=== PATIENT | female | born 1935 | race Caucasian/White ===

== ENCOUNTER 2020-07-07 15:17 | Inpatient (IN) | payer MEDICARE, MEDICAID, SELFPAY ==
[2020-07-07] VITALS (12 sets, daily range): BP systolic 125–183; BP diastolic 48–102; PULSE 84–102; RESP 16–22; TEMP 36.4; O2SAT 90–100; BMI 44.5
--- NOTE | 2020-07-07 15:49 | W.ED.RECABL ---
HPI - Recheck/Abnormal Lab/Rx General: Chief Complaint: Recheck/Abnormal Lab/Rx Stated Complaint: DM RECENT MED CHANGE Time Seen by Provider: 07/07/20 15:26 History of Present Illness: HPI narrative: 84 old female presents to the emergency room via EMS with hypoglycemia. She was recently started on glimepiride she took it for 2 days did not take any today she has been having problems with low blood sugar since he started in the field her blood sugar was below 50 EMS reported in the 30s. She was treated on arrival here she is awake and alert. Bedside glucose is 105. Denies any other symptoms no cough short of breath no vomiting or diarrhea, she has had some nausea with the blood sugars being so low. MD complaint: abnormal lab Initial visit (ago): day(s) Description of abnormal result: Persistent low blood sugar Review of Systems Const: Denies: fever(s), chills, body aches, change in appetite, fatigue or malaise ENMT: Denies: throat pain, ear or mastoid pain, nasal discharge or nasal congestion Card: Denies: chest pain, edema, dyspnea on exertion or orthopnea Resp: Denies: dyspnea, productive cough or non-productive cough GI: Denies: abdominal pain, nausea, vomiting, hematemesis, coffee ground emesis, diarrhea, constipation, bloating, hematochezia or melena : Denies: flank pain, difficulty voiding, dysuria, urinary frequency or urinary urgency Skin/Breast: Denies: rash or pruritus PFSH ED PFSH: Medical History (Updated 07/12/20 @ 14:57 by Sotero Gayle DO) Anemia, chronic renal failure Atrial fibrillation Chronic kidney disease Diabetes mellitus, type II History of transient ischemic attack (TIA) Hyperlipidemia Hypertension Sleep apnea PFTs in 2014 revealed mild with apnea-hypopnea index of 11.5 Surgical History (Updated 07/08/20 @ 02:13 by Monica Vuong MD) History of inguinal hernia repair Family History (Updated 07/08/20 @ 09:31 by Monica Vuong MD) Other Diabetes Social History (Updated 07/08/20 @ 02:21 by Monica Vuong MD) Smoking and tobacco status: never smoked Alcohol intake: never Substance/Drug Use: never Marital status: / Physical Exam Const: COMMON NORMALS: no acute distress GENERAL APPEARANCE: cooperative and comfortable HENMT: COMMON NORMALS: normocephalic, atraumatic and hearing grossly normal bilaterally HEAD & SCALP: normocephalic and atraumatic Eye: COMMON NORMALS: Equal, round and reactive pupils present, EOMs intact bilaterally, conjunctivae normal and no scleral icterus CONJUNCTIVA: Yes conjunctivae normal PUPIL: Yes Equal, round and reactive pupils present Neck/C-Spine: COMMON NORMALS: full ROM, no lymphadenopathy, supple and no JVD Lymph: LYMPHATIC: no lymphadenopathy noted and no lymphedema noted Resp: COMMON NORMALS: normal respiratory effort, No retractions, No use of accessory muscles and clear to auscultation bilaterally AUSCULTATION: clear to auscultation bilaterally Cardio: COMMON NORMALS: no JVD, regular rate, regular rhythm and No murmurs present (Cardio) RATE: regular rate RHYTHM: regular rhythm GI: COMMON NORMALS: Soft to palpation and No hepatosplenomegaly present AUSCULTATION: Yes normoactive bowel sounds PALPATION: Yes Soft to palpation, No Tenderness to palpation present (GI), No Guarding due to palpation present (GI) and Yes No hepatosplenomegaly present Extremity: COMMON NORMALS: normal to inspection, capillary refill normal, no clubbing, cyanosis or edema, no calf tenderness and no pedal edema Skin: COMMON NORMALS: no rashes or lesions noted GENERAL SKIN EXAM: no rashes or lesions noted Course Vital Signs: Vital signs: Vital Signs Temperature 98.3 F 07/08/20 17:09 Pulse Rate 89 07/08/20 17:09 Respiratory Rate 20 H 07/08/20 17:09 Blood Pressure 163/84 07/08/20 17:09 Pulse Oximetry 98 07/08/20 17:09 MDM - Recheck/Abnormal Lab/Rx MDM Narrative: Medical decision making narrative: Patient was given was given 70 eat and as well as glucose boluses and drip were unable to keep her sugar up above 80 consistently and she continued to drop down into the 60s and lower and be symptomatic ultimately decided to observe her overnight we will hold the glimepiride monitor Accu-Cheks discussed with Dr. Steen Lab Data: Labs: Lab Results 07/07/20 07/07/20 07/07/20 Range/Units 15:13 15:13 15:13 WBC 5.0 (4.0-10.0) 10^3/ uL RBC 3.42 L (4.1-5.3) 10^6/u L Hgb 10.2 L (11.5-15.3) g/dL Hct 34.5 L (37.0-47.0) % MCV 100.9 H (81-99) fL MCH 29.8 (28.0-34.0) pg MCHC 29.6 L (30.0-36.0) g/dL RDW 15.9 H (12.1-15.1) % Plt Count 150 (130-400) 10^3/c mm MPV 11.4 H (7.4-10.4) fL Neut % (Auto) 65.0 % Lymph % (Auto) 21.1 % [place] % (Auto) 11.9 % Eos % (Auto) 1.6 % Baso % (Auto) 0.2 % Neut # (Auto) 3.23 (1.8-7.7) 10^3/u L Lymph # (Auto) 1.1 (0.8-4.8) 10^3/u L [place] # (Auto) 0.6 (0.2-0.9) 10^3/u L Eos # (Auto) 0.1 (0.0-0.8) 10^3/u L Baso # (Auto) 0.0 (0.0-0.1) 10^3/u L Nucleated RBC % (a uto) 0 % Nucleated RBCs # 0.0 /100WBC Sodium 139 (136-145) mmol/L Potassium 4.4 (3.5-5.1) mmol/L Chloride 105 (98-107) mmol/L Carbon Dioxide 21 L (22-29) mmol/L Anion Gap 17.4 (5-19) BUN 42 H (8-23) mg/dL Creatinine 1.9 H (0.5-0.9) mg/dL GFR Calculation Not Reportable Glucose 30 L* (65-115) mg/dL POC Glucose (70-110) mg/dL Calculated Osmolal ity 295 (285-295) mOsm/k g Calcium 9.8 (8.5-10.5) mg/dL GGT 15 (5-36) U/L AST 44 H (0-32) U/L ALT 13 (0-33) U/L Lactate Dehydrogen ase 320 H (135-214) U/L TSH 4.94 H (0.27-4.20) uIU/ mL 07/07/20 07/07/20 07/07/20 Range/Units 16:12 16:56 17:49 WBC (4.0-10.0) 10^3/ uL RBC (4.1-5.3) 10^6/u L Hgb (11.5-15.3) g/dL Hct (37.0-47.0) % MCV (81-99) fL MCH (28.0-34.0) pg MCHC (30.0-36.0) g/dL RDW (12.1-15.1) % Plt Count (130-400) 10^3/c mm MPV (7.4-10.4) fL Neut % (Auto) % Lymph % (Auto) % [place] % (Auto) % Eos % (Auto) % Baso % (Auto) % Neut # (Auto) (1.8-7.7) 10^3/u L Lymph # (Auto) (0.8-4.8) 10^3/u L [place] # (Auto) (0.2-0.9) 10^3/u L Eos # (Auto) (0.0-0.8) 10^3/u L Baso # (Auto) (0.0-0.1) 10^3/u L Nucleated RBC % (a uto) % Nucleated RBCs # /100WBC Sodium (136-145) mmol/L Potassium (3.5-5.1) mmol/L Chloride (98-107) mmol/L Carbon Dioxide (22-29) mmol/L Anion Gap (5-19) BUN (8-23) mg/dL Creatinine (0.5-0.9) mg/dL GFR Calculation Glucose (65-115) mg/dL POC Glucose 66 88 53 (70-110) mg/dL Calculated Osmolal ity (285-295) mOsm/k g Calcium (8.5-10.5) mg/dL GGT (5-36) U/L AST (0-32) U/L ALT (0-33) U/L Lactate Dehydrogen ase (135-214) U/L TSH (0.27-4.20) uIU/ mL Discharge Plan Discharge Patient Disposition: Placed in Observation Admit Provider: Moisés Steen Clinical Impression: Hypoglycemia, Chronic kidney disease, Hypertension, Diabetes mellitus, type II Condition: Stable Referrals: Yassine Trejo MD [Primary Care Provider] - 07/15/20 3:15 pm Discharge Diet: Diabetic Discharge Activity: Increase activity as tolerated Patient Instructions: Type 2 Diabetes, Hypoglycemia, Heart Failure (DC), CHF Stoplight Additional Instructions: Home oxygen evaluation prior to discharge. Interventions: ED Discharge Assessment Last Done: 07/07/20 21:07 ED Charges Last Done: 07/07/20 21:07 Discharge Date/Time: 07/07/20 21:00 Coding Level of Care Code ED Weed Sprayer for Chg Fwd Exam Comprehensive
[2020-07-07 16:02] LABS: Blood Urea Nitrogen 42 mg/dL (8-23); Calcium 9.8 mg/dL (8.5-10.5); Carbon Dioxide 21 mmol/L (22-29); Chloride 105 mmol/L (98-107); Osmolality Calculated 295 mOsm/kg (285-295); Sodium 139 mmol/L (136-145)
[2020-07-07 16:07] LABS: Glucose 30 mg/dL (65-115)
[2020-07-07 16:09] LABS: Anion Gap 17.4 (5-19); Potassium 4.4 mmol/L (3.5-5.1)
[2020-07-07 16:16] LABS: Glucose Point of Care 66 mg/dL (70-110)
[2020-07-07] MEDS: dextrose 50% syringe 50 mL 25 ML IVP ×2 (16:23→20:17)
--- NOTE | 2020-07-07 16:57 | PC.NURSE ---
PT BS was 88, MD notified.
[2020-07-07 16:59] LABS: Glucose Point of Care 88 mg/dL (70-110)
[2020-07-07 17:52] LABS: Glucose Point of Care 53 mg/dL (70-110)
[2020-07-07] MEDS: dextrose 5%-sod chloride 0.9% 1,000 ML 125 ML IV (18:25)
[2020-07-07 19:15] LABS: Basophils % 0.2 %; Eosinophils # 0.1 10^3/uL (0.0-0.8); Eosinophils % 1.6 %; Hematocrit 34.5 % (37.0-47.0); Hemoglobin 10.2 g/dL (11.5-15.3); Lymphocytes # 1.1 10^3/uL (0.8-4.8); Lymphocytes % 21.1 %; Mean Corpuscular HGB Conc 29.6 g/dL (30.0-36.0); Mean Corpuscular Hemoglobin 29.8 pg (28.0-34.0); Mean Corpuscular Volume 100.9 fL (81-99); Mean Platelet Volume 11.4 fL (7.4-10.4); Monocytes # 0.6 10^3/uL (0.2-0.9); Monocytes % 11.9 %; Neutrophils # 3.23 10^3/uL (1.8-7.7); Nucleated Red Blood Cells % 0 %; Platelet Count 150 10^3/cmm (130-400); Red Blood Count 3.42 10^6/uL (4.1-5.3); Red Cell Distribution Width 15.9 % (12.1-15.1)
[2020-07-07 19:20] LABS: Alanine Aminotransferase 13 U/L (0-33); Gamma Glutamyl Transferase 15 U/L (5-36); Thyroid Stimulating Hormone 4.94 uIU/mL (0.27-4.20)
[2020-07-07 19:31] LABS: Glucose Point of Care 44 mg/dL (70-110)
[2020-07-07 19:32] LABS: Aspartate Amino Transferase 44 U/L (0-32); Lactate Dehydrogenase 320 U/L (135-214)
--- NOTE | 2020-07-07 19:56 | PC.NURSE ---
pt Blood Glucose read 44 at approx 1930 this nurse gave patient 8 oz of juice checked BG 30 min after and BG 41
[2020-07-07 20:18] LABS: Glucose Point of Care 41 mg/dL (70-110)
[2020-07-07] MEDS: dextrose 10% 1,000 ML 75 ML IV (20:30)
[2020-07-07 20:50] LABS: Glucose Point of Care 68 mg/dL (70-110)
[2020-07-07 22:03] LABS: Glucose Point of Care 52 mg/dL (70-110)
[2020-07-07] MEDS: dextrose 10% 1,000 ML 125 ML IV (22:47)
--- NOTE | 2020-07-07 23:40 | PM.HP ---
Providers/Chief Complaint Admitting Physician: Moisés Steen MD Primary Care Provider: Yassine Trejo MD Chief Complaint: Low blood sugar History of Present Illness Viviana Aviles is a 84 year old female who presented to the emergency room with chief complaint of low blood sugar and not feeling well. She had been recently started on glimepiride for her diabetes. It was 2 mg daily. She started it on Tuesday, taking it on Tuesday and Tuesday. She did not take it today because of how low her blood sugars had been. She was more symptomatic today with tremors, general malaise, fatigue, diaphoresis and nausea among a sense of general unease. She was brought in by EMS who reported her blood sugar to be in the 30s. She has received D50 and has been started on D5W. Blood sugars are better though continue to be low necessitating increase up to 125 cc an hour of D5W thus far. She has never had anything like this before. She did stop her pioglitazone prior to starting the glimepiride. She does not take any insulin. She does have known chronic kidney disease but looking at most recently available comparative labs that date back to 2014 values are not that dissimilar. Do not currently have any more recent values for comparison. With the persistent hypoglycemia in the setting of sulfonylurea she is being admitted for further evaluation and treatment. She denies any episodes of chest pain or acute difficulty breathing. Review of Systems Const: Reports: change in appetite, fatigue, malaise and diaphoresis; Denies: fever(s) or chills Eyes: Denies: change in vision ENMT: Denies: throat pain, dry mouth or nasal congestion Card: Denies: chest pain, palpitations or edema Resp: Denies: dyspnea, productive cough or non-productive cough GI: Reports: nausea; Denies: abdominal pain, vomiting, diarrhea or constipation : Reports: other (States she is unable to urinate if she does not take Lasix) Musc: Reports: other (Generalized aches and pains) Skin/Breast: Denies: rash, pruritus or sores Neuro: Reports: weakness in extremities and dizziness; Denies: headache(s) or numbness in extremities Psych: Reports: anxiety; Denies: depression Jamie/Lymph: Denies: easy bruising or easy bleeding Medications/Allergies Home Medications Medication Instructions Recorded Confirmed Last Taken Type alprazolam 0.25 mg PO TID PRN 07/07/20 07/07/20 Unknown History atorvastatin 10 mg PO DAILY 07/07/20 07/07/20 07/07/20 History dabigatran etexilate [Pradaxa] 75 mg PO DAILY 07/07/20 07/07/20 07/07/20 History ergocalciferol (vitamin D2) 1,250 mcg PO Q7D 07/07/20 07/07/20 07/05/20 History furosemide 40 mg PO DAILY 07/07/20 07/07/20 07/06/20 History glimepiride 2 mg PO DAILY 07/07/20 07/07/20 07/06/20 History pantoprazole 40 mg PO DAILY 07/07/20 07/07/20 07/07/20 History pioglitazone 30 mg PO DAILY 07/07/20 07/07/20 07/04/20 History tramadol-acetaminophen 1 - 2 tab PO TID PRN 07/07/20 07/07/20 Unknown History Allergies Allergy/AdvReac Type Severity Reaction Status Date / Time cephalexin [From Keflex] Allergy ADR-Nausea Verified 07/07/20 15:29 Sulfa (Sulfonamide Allergy ADR-Vomitin Verified 07/07/20 15:29 Antibiotics) g PFSH Acute PFSH: Medical History (Updated 07/08/20 @ 02:24 by Monica Vuong MD) Anemia, chronic renal failure Atrial fibrillation Chronic kidney disease Diabetes mellitus, type II History of transient ischemic attack (TIA) Hyperlipidemia Hypertension Sleep apnea PFTs in 2014 revealed mild with apnea-hypopnea index of 11.5 Surgical History (Updated 07/08/20 @ 02:13 by Monica Vuong MD) History of inguinal hernia repair Family History (Updated 07/08/20 @ 09:31 by Monica Vuong MD) Other Diabetes Social History (Updated 07/08/20 @ 02:21 by Monica Vuong MD) Smoking and tobacco status: never smoked Alcohol intake: never Substance/Drug Use: never Marital status: / Vitals/I&O/Wt Last Vital Signs Temp 97.6 F 07/07/20 21:30 Pulse 92 07/07/20 21:30 Resp 20 H 07/07/20 21:30 BP 137/65 07/07/20 21:30 Pulse Ox 100 07/07/20 21:30 07/07/20 07/07/20 07/08/20 14:59 22:59 06:59 Intake Total 279.167 / 279.167 Output Total 100 / 100 Balance 179.167 / 179.167 Weight last 48 hrs Weight 103.419 kg Physical Exam Const: OTHER: Alert, oriented x3, cooperative, a bit anxious HENMT: OTHER: Normocephalic atraumatic, moist mucus membranes Eye: OTHER: Pupils equally round and reactive to light Neck/C-Spine: OTHER: Supple, no thyromegaly or lymphadenopathy Resp: OTHER: Clear to auscultation bilaterally, no rales, rhonchi or wheezes noted, no accessory muscle use noted Cardio: OTHER: Irregular rate controlled rhythm, no murmurs gallops or rubs. Pulses equal both lower extremities in both upper extremities GI: OTHER: Abdomen soft, nontender, obese with positive bowel sounds : OTHER: Normal external genitalia Extremity: NARRATIVE EXTREMITY EXAM: Patient with large legs, some pitting edema apparent more distally below the knee although is also puffy above the knees Neuro: OTHER: Face symmetric, speech clear, moves all extremities Psych: OTHER: Mildly anxious but otherwise normal affect Skin: OTHER: Skin dry, no wounds noted, chronic stasis changes to the lower extremities Data : 07/08/20 02:36 07/08/20 02:36 A&P Assessment and plan (1) Hypoglycemia secondary to sulfonylurea: Recently started on sulfonylurea in the form of glipizide 2 mg p.o. daily. Has had hypoglycemia since then as noted. Also chronically on pioglitazone. Status: Acute Qualifiers: Encounter type: initial encounter Injury intent: accidental or unintentional Qualified Code(s): T38.3X1A - Poisoning by insulin and oral hypoglycemic [antidiabetic] drugs, accidental (unintentional), initial encounter; E16.0 - Drug-induced hypoglycemia without coma (2) Chronic kidney disease: Looks to be at least stage III at baseline. No recent comparative labs but labs from 2014 showed similar values. Status: Chronic Qualifiers: Chronic kidney disease stage: stage 3 (moderate) Qualified Code(s): N18.3 - Chronic kidney disease, stage 3 (moderate) (3) Chronic anticoagulation: With Pradaxa Status: Chronic (4) Atrial fibrillation: Chronic, currently rate controlled Status: Chronic Qualifiers: Atrial fibrillation type: unspecified Qualified Code(s): I48.91 - Unspecified atrial fibrillation (5) Hyperlipidemia: Chronically on statin therapy Status: Chronic Qualifiers: Hyperlipidemia type: unspecified Qualified Code(s): E78.5 - Hyperlipidemia, unspecified (6) Hypertension: Treated with Lasix Status: Chronic Qualifiers: Hypertension type: unspecified Qualified Code(s): I10 - Essential (primary) hypertension Additional A&P Information Inpatient admission secondary to the degree of hypo-glycemia and chronic kidney disease Continue frequent Accu-Cheks Continue infusion of dextrose containing fluids, adjusting as needed Consider glucagon May have to consider steroids depending on clinical course Check EKG and troponin to ensure hypoglycemia simply from medication changes rather than developing cardiac issues Continue Pradaxa at renal dosing Continue home Lasix, statin Obviously glimepiride and pioglitazone are currently held, when blood sugars improve can add some sliding scale insulin as needed. Will need to reevaluate consideration for outpatient oral medication management in light of response to sulfonylureas and her comorbid conditions. Continue home PPI Continue home alprazolam as needed Have currently held home vitamin D and tramadol/acetaminophen as formulations are nonformulary Supportive care otherwise Plans discussed with patient and she was given an opportunity to ask questions Anticipate discharge home at that she may benefit from some home health short-term or at least close follow-up. Would also benefit from glucagon prescription at discharge potentially Full code Attestations Medical Necessity Statement*: Anticipate stay greater than 2 midnights in a patient with chronic kidney disease recently started on a sulfonylurea for better blood sugar control. Given the degree of kidney disease and current state of hypoglycemia she needs dextrose containing fluid infusion and frequent monitoring of blood sugars to allow for appropriate adjustments in therapy as indicated. At high risk of significant clinical decline if not treated in the acute setting. Coding Level of Care Code Acute Guest Experience Manager for [employer] Diagnoses Hypoglycemia secondary to sulfonylurea T38.3X1A; E16.0 Encounter type: initial encounter Injury intent: accidental or unintentional Chronic kidney disease N18.3 Chronic kidney disease stage: stage 3 (moderate) Chronic anticoagulation Z79.01 Atrial fibrillation I48.91 Atrial fibrillation type: unspecified Hyperlipidemia E78.5 Hyperlipidemia type: unspecified Hypertension I10 Hypertension type: unspecified
[2020-07-07 23:48] LABS: Glucose Point of Care 54 mg/dL (70-110)
[2020-07-08] VITALS (7 sets, daily range): BP systolic 153–163; BP diastolic 50–87; PULSE 89–96; RESP 18–22; TEMP 36.5–37.1; O2SAT 97–100
[2020-07-08 00:39] LABS: Glucose Point of Care 67 mg/dL (70-110)
[2020-07-08 01:13] LABS: Glucose Point of Care 83 mg/dL (70-110)
[2020-07-08 02:01] LABS: Glucose Point of Care 52 mg/dL (70-110)
--- NOTE | 2020-07-08 02:17 | ECG_ITS ---
[facility] Test Date: 2020-07-08 Pat Name: Viviana Aviles Department: Room: 250 Gender: Female Wireline Operator: JERMAINE : 1935 Requested By: Monica Vuong Order Number: [id number] [place] MD: Juancarlos Adams M.D. Measurements Intervals [place] Rate: 95 P: IN: -1 QRS: 105 QRSD: 87 T: 28 QT: 361 QTc: 454 Interpretive Statements ATRIAL FIBRILLATION PATTERN CONSISTENT WITH PULMONARY DISEASE POSSIBLE RIGHT VENTRICULAR HYPERTROPHY [SOME/ALL OF: PROMINENT R IN V1, LATE TRANSITION, RAD, CHRISTOPHER, SSS] No previous ECG available for comparison Electronically Signed On 07-09-2020 18:36:41 CDT by Juancarlos Adams M.D. [email or web address]
[2020-07-08 02:43] LABS: Basophils % 0.2 %; Eosinophils # 0.1 10^3/uL (0.0-0.8); Eosinophils % 2.5 %; Hematocrit 28.9 % (37.0-47.0); Hemoglobin 9.1 g/dL (11.5-15.3); Lymphocytes # 0.8 10^3/uL (0.8-4.8); Lymphocytes % 14.4 %; Mean Corpuscular HGB Conc 31.5 g/dL (30.0-36.0); Mean Corpuscular Hemoglobin 30.3 pg (28.0-34.0); Mean Corpuscular Volume 96.3 fL (81-99); Mean Platelet Volume 10.6 fL (7.4-10.4); Monocytes # 0.7 10^3/uL (0.2-0.9); Monocytes % 12.7 %; Neutrophils # 3.63 10^3/uL (1.8-7.7); Neutrophils % 69.6 %; Nucleated Red Blood Cells % 0 %; Platelet Count 128 10^3/cmm (130-400); Red Cell Distribution Width 15.9 % (12.1-15.1); White Blood Count 5.2 10^3/uL (4.0-10.0)
[2020-07-08 03:12] LABS: Troponin(5th) Baseline 32 ng/L (0-10)
[2020-07-08 03:13] LABS: Alanine Aminotransferase 11 U/L (0-33); Albumin Level 3.6 g/dL (3.5-5.2); Alkaline Phosphatase 90 IU/L (35-105); Anion Gap 15.2 (5-19); Aspartate Amino Transferase 38 U/L (0-32); Blood Urea Nitrogen 42 mg/dL (8-23); Calcium 9.7 mg/dL (8.5-10.5); Carbon Dioxide 23 mmol/L (22-29); Chloride 101 mmol/L (98-107); Globulin 2.8 g/dL (1.3-4.6); Glucose 49 mg/dL (65-115); Magnesium 1.7 mg/dL (1.7-2.3); Osmolality Calculated 288 mOsm/kg (285-295); Phosphorus 2.3 mg/dL (2.5-4.5); Potassium 4.2 mmol/L (3.5-5.1); Sodium 135 mmol/L (136-145); Total Bilirubin 0.5 mg/dL (0.15-1.2); Total Protein 6.4 g/dL (6.6-8.7)
[2020-07-08 03:16] LABS: Glucose Point of Care 57 mg/dL (70-110)
[2020-07-08] MEDS: ALPRAZolam 0.25 mg Tablet PO ×2 (03:24→14:20)
[2020-07-08 03:50] LABS: Free T4 Free Thyroxine 1.44 ng/dL (0.82-1.77); Lactate Dehydrogenase 214 U/L (135-214)
[2020-07-08 03:57] LABS: Glucose Point of Care 47 mg/dL (70-110)
[2020-07-08] MEDS: dextrose 10% 1,000 ML 125 ML IV (04:57)
[2020-07-08] MEDS: FUROsemide 10 mg/mL SDV 4mL 40 MG IVP (05:05)
[2020-07-08 05:44] LABS: Glucose Point of Care 67 mg/dL (70-110)
[2020-07-08 07:02] LABS: Glucose Point of Care 90 mg/dL (70-110)
[2020-07-08] MEDS: FUROsemide 40 mg Tablet PO (08:06)
[2020-07-08] MEDS: pantoprazole DR 40 mg Tablet PO (08:06)
[2020-07-08 09:55] LABS: Glucose Point of Care 193 mg/dL (70-110)
[2020-07-08] MEDS: acetaminophen 325 mg Tablet 650 MG PO (10:24)
[2020-07-08 10:52] LABS: Glucose Point of Care 227 mg/dL (70-110)
[2020-07-08 12:33] LABS: Glucose Point of Care 256 mg/dL (70-110)
--- NOTE | 2020-07-08 15:48 | P.DS_ITS ---
Discharge Providers Date of Admission: 07/07/20 18:08 Date of Discharge: July 08, 2020 Attending Provider at Admission: Moisés Steen MD Attending Provider at Discharge: Moisés Steen MD Primary Care Provider: Yassine Trejo MD Diagnoses at Discharge Discharge Diagnosis (1) Hypoglycemia secondary to sulfonylurea: Status: Acute Problem details: Resolved with holding the medication. Required IV infusion of glucose and hospitalization. Qualifiers: Encounter type: initial encounter Injury intent: accidental or unintentional Qualified Code(s): T38.3X1A - Poisoning by insulin and oral hypoglycemic [antidiabetic] drugs, accidental (unintentional), initial encounter; E16.0 - Drug-induced hypoglycemia without coma (2) Chronic kidney disease: Status: Chronic Qualifiers: Chronic kidney disease stage: stage 3 (moderate) Qualified Code(s): N18.3 - Chronic kidney disease, stage 3 (moderate) (3) Chronic anticoagulation: Status: Chronic Problem details: pradaxa (4) Atrial fibrillation: Status: Chronic Qualifiers: Atrial fibrillation type: unspecified Qualified Code(s): I48.91 - Unspecified atrial fibrillation (5) Hyperlipidemia: Status: Chronic Qualifiers: Hyperlipidemia type: unspecified Qualified Code(s): E78.5 - Hyperlipidemia, unspecified (6) Hypertension: Status: Chronic Qualifiers: Hypertension type: unspecified Qualified Code(s): I10 - Essential (primary) hypertension Reason for Visit Reason for Visit: Low blood sugar Hospital Course Hospital Course: Viviana is an 84-year-old white female who presented to the hospital with hypoglycemia after being started on oral sulfonylurea. She required continuous IV insulin infusion, and was therefore placed in the hospital for further observation. The following day she was doing much better with holding all of her diabetic medications, maintaining her blood sugar off IV glucose infusion. It was thought she could be discharged home. A home oxygen evaluation will be done prior to discharge secondary to her chronic complaints of shortness of breath her primary care provider is following. Physical Exam Narrative: EXAM NARRATIVE: General exam no apparent distress Cardiovascular regular rate and rhythm without murmur Lungs clear Abdomen is soft with positive bowel sounds Extremities no cyanosis clubbing or edema Discharge Data Data Completed and Pending: Pending at discharge Category Date Time Status Complete Blood Co unt w/Auto AM LABS Lab 07/09/20 04:00 Ordered Labs from last 24 hours 07/08/20 07/08/2007/08/20 12:27 10:40 09:39 WBC RBC Hgb Hct MCV MCH MCHC RDW Plt Count MPV Neut % (Auto) Lymph % (Auto) [place] % (Auto) Eos % (Auto) Baso % (Auto) Neut # (Auto) Lymph # (Auto) [place] # (Auto) Eos # (Auto) Baso # (Auto) Nucleated RBC % (a uto) Nucleated RBCs # Sodium Potassium Chloride Carbon Dioxide Anion Gap BUN Creatinine GFR Calculation Glucose POC Glucose 256 227 193 Calculated Osmolal ity Calcium Phosphorus Magnesium Total Bilirubin GGT AST ALT Alkaline Phosphata se Lactate Dehydrogen ase Troponin T Baselin e Total Protein Albumin Globulin TSH Free T4 07/08/20 07/08/20 07/08/20 06:33 05:40 03:55 WBC RBC Hgb Hct MCV MCH MCHC RDW Plt Count MPV Neut % (Auto) Lymph % (Auto) [place] % (Auto) Eos % (Auto) Baso % (Auto) Neut # (Auto) Lymph # (Auto) [place] # (Auto) Eos # (Auto) Baso # (Auto) Nucleated RBC % (a uto) Nucleated RBCs # Sodium Potassium Chloride Carbon Dioxide Anion Gap BUN Creatinine GFR Calculation Glucose POC Glucose 90 67 47 Calculated Osmolal ity Calcium Phosphorus Magnesium Total Bilirubin GGT AST ALT Alkaline Phosphata se Lactate Dehydrogen ase Troponin T Baselin e Total Protein Albumin Globulin TSH Free T4 07/08/20 07/08/20 07/08/20 03:04 02:36 02:36 WBC RBC Hgb Hct MCV MCH MCHC RDW Plt Count MPV Neut % (Auto) Lymph % (Auto) [place] % (Auto) Eos % (Auto) Baso % (Auto) Neut # (Auto) Lymph # (Auto) [place] # (Auto) Eos # (Auto) Baso # (Auto) Nucleated RBC % (a uto) Nucleated RBCs # Sodium Potassium Chloride Carbon Dioxide Anion Gap BUN Creatinine GFR Calculation Glucose POC Glucose 57 Calculated Osmolal ity Calcium Phosphorus Magnesium Total Bilirubin GGT AST ALT Alkaline Phosphata se Lactate Dehydrogen ase 214 Troponin T Baselin e 32 H Total Protein Albumin Globulin TSH Free T4 1.44 07/08/20 07/08/20 07/08/20 02:36 02:36 01:57 WBC 5.2 RBC 3.00 L Hgb 9.1 L Hct 28.9 L MCV 96.3 MCH 30.3 MCHC 31.5 D RDW 15.9 H Plt Count 128 L MPV 10.6 H Neut % (Auto) 69.6 Lymph % (Auto) 14.4 [place] % (Auto) 12.7 Eos % (Auto) 2.5 Baso % (Auto) 0.2 Neut # (Auto) 3.63 Lymph # (Auto) 0.8 [place] # (Auto) 0.7 Eos # (Auto) 0.1 Baso # (Auto) 0.0 Nucleated RBC % (a uto) 0 Nucleated RBCs # 0.0 Sodium 135 L Potassium 4.2 Chloride 101 Carbon Dioxide 23 Anion Gap 15.2 BUN 42 H Creatinine 2.0 H GFR Calculation Not Reportable Glucose 49 L POC Glucose 52 Calculated Osmolal ity 288 Calcium 9.7 Phosphorus 2.3 L Magnesium 1.7 Total Bilirubin 0.5 GGT AST 38 H ALT 11 Alkaline Phosphata se 90 Lactate Dehydrogen ase Troponin T Baselin e Total Protein 6.4 L Albumin 3.6 Globulin 2.8 TSH Free T4 07/08/20 07/07/20 07/07/20 01:08 23:56 23:03 WBC RBC Hgb Hct MCV MCH MCHC RDW Plt Count MPV Neut % (Auto) Lymph % (Auto) [place] % (Auto) Eos % (Auto) Baso % (Auto) Neut # (Auto) Lymph # (Auto) [place] # (Auto) Eos # (Auto) Baso # (Auto) Nucleated RBC % (a uto) Nucleated RBCs # Sodium Potassium Chloride Carbon Dioxide Anion Gap BUN Creatinine GFR Calculation Glucose POC Glucose 83 67 54 Calculated Osmolal ity Calcium Phosphorus Magnesium Total Bilirubin GGT AST ALT Alkaline Phosphata se Lactate Dehydrogen ase Troponin T Baselin e Total Protein Albumin Globulin TSH Free T4 07/07/20 07/07/20 07/07/20 21:51 20:45 20:06 WBC RBC Hgb Hct MCV MCH MCHC RDW Plt Count MPV Neut % (Auto) Lymph % (Auto) [place] % (Auto) Eos % (Auto) Baso % (Auto) Neut # (Auto) Lymph # (Auto) [place] # (Auto) Eos # (Auto) Baso # (Auto) Nucleated RBC % (a uto) Nucleated RBCs # Sodium Potassium Chloride Carbon Dioxide Anion Gap BUN Creatinine GFR Calculation Glucose POC Glucose 52 68 41 Calculated Osmolal ity Calcium Phosphorus Magnesium Total Bilirubin GGT AST ALT Alkaline Phosphata se Lactate Dehydrogen ase Troponin T Baselin e Total Protein Albumin Globulin TSH Free T4 07/07/20 07/07/20 07/07/20 19:28 17:49 16:56 WBC RBC Hgb Hct MCV MCH MCHC RDW Plt Count MPV Neut % (Auto) Lymph % (Auto) [place] % (Auto) Eos % (Auto) Baso % (Auto) Neut # (Auto) Lymph # (Auto) [place] # (Auto) Eos # (Auto) Baso # (Auto) Nucleated RBC % (a uto) Nucleated RBCs # Sodium Potassium Chloride Carbon Dioxide Anion Gap BUN Creatinine GFR Calculation Glucose POC Glucose 44 53 88 Calculated Osmolal ity Calcium Phosphorus Magnesium Total Bilirubin GGT AST ALT Alkaline Phosphata se Lactate Dehydrogen ase Troponin T Baselin e Total Protein Albumin Globulin TSH Free T4 07/07/20 07/07/20 07/07/20 16:12 15:13 15:13 WBC 5.0 RBC 3.42 L Hgb 10.2 L Hct 34.5 L MCV 100.9 H MCH 29.8 MCHC 29.6 L RDW 15.9 H Plt Count 150 MPV 11.4 H Neut % (Auto) 65.0 Lymph % (Auto) 21.1 [place] % (Auto) 11.9 Eos % (Auto) 1.6 Baso % (Auto) 0.2 Neut # (Auto) 3.23 Lymph # (Auto) 1.1 [place] # (Auto) 0.6 Eos # (Auto) 0.1 Baso # (Auto) 0.0 Nucleated RBC % (a uto) 0 Nucleated RBCs # 0.0 Sodium Potassium Chloride Carbon Dioxide Anion Gap BUN Creatinine GFR Calculation Glucose POC Glucose 66 Calculated Osmolal ity Calcium Phosphorus Magnesium Total Bilirubin GGT 15 AST 44 H ALT 13 Alkaline Phosphata se Lactate Dehydrogen ase 320 H Troponin T Baselin e Total Protein Albumin Globulin TSH 4.94 H Free T4 07/07/20 15:13 WBC RBC Hgb Hct MCV MCH MCHC RDW Plt Count MPV Neut % (Auto) Lymph % (Auto) [place] % (Auto) Eos % (Auto) Baso % (Auto) Neut # (Auto) Lymph # (Auto) [place] # (Auto) Eos # (Auto) Baso # (Auto) Nucleated RBC % (a uto) Nucleated RBCs # Sodium 139 Potassium 4.4 Chloride 105 Carbon Dioxide 21 L Anion Gap 17.4 BUN 42 H Creatinine 1.9 H GFR Calculation Not Reportable Glucose 30 L* POC Glucose Calculated Osmolal ity 295 Calcium 9.8 Phosphorus Magnesium Total Bilirubin GGT AST ALT Alkaline Phosphata se Lactate Dehydrogen ase Troponin T Baselin e Total Protein Albumin Globulin TSH Free T4 Vitals: Last Vital Signs Temp 98.3 F 07/08/20 15:29 Pulse 89 07/08/20 15:29 Resp 20 H 07/08/20 15:29 BP 163/84 07/08/20 15:29 Pulse Ox 98 07/08/20 15:29 Discharge Plan Discharge Patient Disposition: Home Condition: Stable Prescriptions: Continued furosemide 40 mg tablet 40 mg PO DAILY RF: 0 atorvastatin 10 mg tablet 10 mg PO DAILY RF: 0 tramadol-acetaminophen 37.5-325 mg tablet 1 - 2 tab PO TID PRN (Reason: Pain) RF: 0 alprazolam 0.25 mg tablet 0.25 mg PO TID PRN (Reason: Anxiety) RF: 0 pantoprazole 40 mg tablet,delayed release (DR/EC) 40 mg PO DAILY RF: 0 ergocalciferol (vitamin D2) 1,250 mcg (50,000 unit) capsule 1,250 mcg PO Q7D RF: 0 Pradaxa 75 mg capsule 75 mg PO BID RF: 0 Discontinued glimepiride 2 mg tablet 2 mg PO DAILY RF: 0 pioglitazone 30 mg tablet 30 mg PO DAILY RF: 0 Discharge Orders: Discharge Order (Routine); Ordered 07/08/20 Ordered By: Moisés Steen Referrals: Yassine Trejo MD [Primary Care Provider] - 07/15/20 3:15 pm Discharge Diet: Diabetic Discharge Activity: Increase activity as tolerated Activity Restrictions/Additional Instructions: Home oxygen evaluation prior to discharge. Discharge Attestations Time Spent in Discharge Care*: greater than 30 min Quality Metrics Clinical Quality Measures During this hospital stay, did patient experience: None Coding Level of Care Code Acute Help Desk Technician for g [employer] Diagnoses Hypoglycemia secondary to sulfonylurea T38.3X1A; E16.0 Encounter type: initial encounter Injury intent: accidental or unintentional Chronic kidney disease N18.3 Chronic kidney disease stage: stage 3 (moderate) Chronic anticoagulation Z79.01 Atrial fibrillation I48.91 Atrial fibrillation type: unspecified Hyperlipidemia E78.5 Hyperlipidemia type: unspecified Hypertension I10 Hypertension type: unspecified
== END 2020-07-08 14:58 | disposition home or self-care (01) | DRG 918 ==
LOC: ER 16:01 → MEDSURG 18:44
PROVIDERS: Family Medicine; Hospitalist; Admitting Provider Internal Medicine; PCP Family Medicine; Visit Provider Internal Medicine
DX: T38.3X1A Poisoning by insulin and oral hypoglycemic [antidiabetic] drugs, accidental (unintentional), initial encounter (principal); Z68.41 Body mass index [BMI] 40.0-44.9, adult; N18.3 Chronic kidney disease, stage 3 (moderate); I48.91 Unspecified atrial fibrillation; Z79.01 Long term (current) use of anticoagulants; E16.0 Drug-induced hypoglycemia without coma; E78.5 Hyperlipidemia, unspecified; I10 Essential (primary) hypertension; E11.649 Type 2 diabetes mellitus with hypoglycemia without coma; Y92.009 Unspecified place in unspecified non-institutional (private) residence as the place of occurrence of the external cause; Z79.4 Long term (current) use of insulin; G47.30 Sleep apnea, unspecified; Z86.73 Personal history of transient ischemic attack (TIA), and cerebral infarction without residual deficits
CPT/HCPCS: 12345; 36415; 36416; 80048; 80053; 82962; 82977; 83615; 83735; 84100; 84439; 84443; 84450; 84460; 84484; 85025; 93005; 96372; 96375; 99283; J1610; J1940; J2920

== ENCOUNTER 2021-01-27 06:00 | Outpatient (RCR) | payer MEDICARE, MEDICAID, SELFPAY | END 2021-02-06 23:59 | disposition home or self-care (01) | LOC: SOT 06:00 | PROVIDERS: PCP Family Medicine; Referring Provider Family Medicine; Visit Provider Family Medicine | DX: Z74.09 Other reduced mobility (principal) | CPT/HCPCS: 97167; 97530 ==